=== PATIENT | male | born 1990 | race Caucasian/White ===

== ENCOUNTER → 2023-02-23 08:37 | Outpatient (CLI) | payer MEDICARE, OTHER, SELFPAY ==
[2023-02-23 18:56] LABS: Basophils % 0.4 % (0.1-2.0); Eosinophils # 0.1 K/mm3 (0.0-0.4); Eosinophils % 1.1 % (0.1-12.0); Hematocrit 47.6 % (42.0-52.0); Hemoglobin 16.8 g/dL (14.1-18.0); Lymphocytes # 2.6 K/mm3 (0.7-4.5); Lymphocytes % 25.6 % (10-50); Mean Corpuscular HGB Conc 35.2 g/dL (31.8-35.4); Mean Corpuscular Hemoglobin 31.7 pg (27.0-31.2); Mean Corpuscular Volume 90.2 fl (80-94); Mean Platelet Volume 9.2 fl (7.4-10.4); Monocytes # 0.6 K/mm3 (0.1-1.0); Monocytes % 5.9 % (1.7-9.3); Neutrophils # 6.8 K/mm3 (1.8-7.8); Platelet Count 242 K/mm3 (142-424); Red Blood Count 5.28 M/mm3 (4.60-6.20); Red Cell Distribution Width 14.9 % (11.5-17.5); White Blood Count 10.1 K/mm3 (4.8-10.8)
[2023-02-23 18:58] LABS: Alanine Aminotransferase 28 U/L (12-78); Albumin Level 4.7 g/dl (3.5-5.0); Albumin/Globulin Ratio 1.4 (1.1-1.8); Alkaline Phosphatase 66 U/L (38-126); Anion Gap 14.9 mEq/L (5-15); Aspartate Amino Transferase 42 U/L (17-59); Bilirubin,Total 0.6 mg/dl (0.2-1.3); Blood Urea Nitrogen 11 mg/dl (9-20); Calcium 10.2 mg/dl (8.4-10.2); Carbon Dioxide 26 mmol/L (22.0-30.0); Chloride 104 mmol/L (98-107); Chol/HDL Ratio 2.7 (1-3.5); Cholesterol 143 mg/dl (140-200); Estimated Glomerular Filt Rate 111 ml/min (>60); GFR (African American) 135 ML/MIN (>60); Globulin 3.3 g/dL (1.3-3.2); Glucose 92 mg/dl (74-100); HDL Cholesterol 53 mg/dl (40-60); Potassium 3.9 mmoL/L (3.5-5.1); Sodium 141 mmol/L (136-145); Triglycerides 55 mg/dl (30-150); VLDL Cholesterol 11 mg/dL (0-40)
[2023-02-23 19:10] LABS: Direct LDL Cholesterol 74.97 mg/dL (100-129)
[2023-02-23 19:15] LABS: T4 (Thyroxine) 8.5 ug/dl (5.53-11.0)
[2023-02-23 19:16] LABS: 25-OH Vitamin D, Total 48.6 ng/mL (30-100)
[2023-02-23 19:29] LABS: Thyroid Stimulating Hormone 0.87 uIU/mL (0.465-4.68)
[2023-02-23 20:43] LABS: Erythrocyte Sedimentation Rate 10 mm/hr (0-15)
[2023-02-26 13:20] LABS: C-Peptide 2.8 ng/mL (1.1-4.4)
== END ==
PROVIDERS: PCP Emergency Medicine; Visit Provider Emergency Medicine
DX: E55.9 Vitamin D deficiency, unspecified (principal); E78.5 Hyperlipidemia, unspecified; L03.114 Cellulitis of left upper limb; R53.83 Other fatigue; Z68.22 Body mass index [BMI] 22.0-22.9, adult
CPT/HCPCS: 80053; 80061; 82306; 84436; 84443; 84681; 85025; 85651

== ENCOUNTER 2025-03-05 17:54 | Emergency (ER) | payer OTHER, SELFPAY ==
[2025-03-05 17:59] VITALS: BP 137/80; PULSE 84; RESP 20; TEMP 36.8; O2SAT 100
--- NOTE | 2025-03-05 18:02 | PC.NURSE ---
Pt awake alert and oriented Skin pink warm and dry 2nd degree and 1st degree bran noted to dorsal feet bilaterally Resp full and easy Speech clear and appropriate.
--- OUTSIDE RECORDS SUMMARY | 2025-03-05 18:10 | XMS_ITS | Encounter Summary ---
Author Organization [facility] Address [address] [place] [address] Care Team Providers Care Auto Radiator Specialist Name Role Phone Belem Valentine APRN Primary Care Provider Encounter Details Date Type Department Care Team (Late st Contact Info) Description 10/13/2011 Orders Only [facility] [address] [place] [address] Belem Valentine APRN [address] [place] [address] Fatigue (Primary Dx) Social History Tobacco Use Types Packs/Day Years Used Date Smoking Tobacco: Every Day Cigarettes 0.5 5 Alcohol Use Standard Drinks/Week Comments No 0 (1 standard drink = 0.6 oz pur e alcohol) Sex and Gender Information Value Date Recorded Sex Assigned at Not on file 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 Gender Identity Not on file Sexual Orientation Not on file documented as of this encounter Plan of Treatment Scheduled Orders Name Type Priority Associated Diagnoses Orde r Schedule Paper lab order(s) received Lab Routine Fatigue Expected: 10/13/2011, Expires: 04/14/2012 documented as of this encounter Visit Diagnoses Diagnosis Fatigue- Primary Other malaise and fatigue documented in this encounter Care Teams Auto Radiator Specialist Relationship Specialty Start Date End Date Belem Valentine APRN PCP - General Family Medicine 10/09/11 documented as of this encounter Additional Source Comments IMPORTANT NOTICES REGARDING PATIENT RECORDS DISCLOSED THROUGH CARE EVERYWHERE:1. If the informationreleased to you contains information about AIDs or HIVtest results, that information has been disclosed to you from records whoseconfidentiality is protected by state law ([place] 214[place]625). State law proh ibitsyou from making any further disclosure of such information relating to AIDS orHIV without the specific written consent of the person to whom such informationpertains, or as otherwise permitted by state law. A general authorization forthe release of medical or other information is NOT sufficient for this purpose.2. If the information released to you contains information about alcohol ordrug abuse diagnosis, treatment for such abuse, or referrals for treatment, andif the release was made by a program as defined in 42 CFR 2.11, thisinformation has been disclosed to you from records protected by Federalconfidentiality rules ( TheFederal rules restrict any use of the information to criminally investigate orprosecute any alcohol or drug abuse patient.3. If the information released to you contains information about a person'smental health or chemical dependency, you may not redisclose or otherwisereveal information concerning the mental health or chemical dependency of thatperson, beyond the purpose for which the disclosure was made, without firstobtaining that person's specific written consent to the redisclosure. [id number].[facility]
--- OUTSIDE RECORDS SUMMARY | 2025-03-05 18:11 | XMS_ITS | Encounter Summary ---
Author Organization [facility] Address [address] [place] [address] Care Team Providers Care Hospital Laboratory Technician Name Role Phone Belem Valentine APRN Primary Care Provider Encounter Details Date Type Department Care Team (Late st Contact Info) Description 11/09/2011 Orders Only [facility] [address] [place] [address] Belem Valentine APRN [address] [place] [address] Chronic hepatitis C without mention of hepatic coma (Primary Dx) Social History Tobacco Use Types Packs/Day Years Used Date Smoking Tobacco: Every Day Cigarettes 0.5 5 Smokeless Tobacco: Current Snuff, Chew Alcohol Use Standard Drinks/Week Comments No 0 (1 standard drink = 0.6 oz pur e alcohol) Sex and Gender Information Value Date Recorded Sex Assigned at Not on file 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 Gender Identity Not on file Sexual Orientation Not on file documented as of this encounter Plan of Treatment Scheduled Orders Name Type Priority Associated Diagnoses Orde r Schedule Paper lab order(s) received Lab Routine Chronic hepatitis C without mention of hepatic coma Expected: 11/09/2011, Expires: 05/11/2012 documented as of this encounter Visit Diagnoses Diagnosis Chronic hepatitis C without mention of hepatic coma- Primary documented in this encounter Care Teams Hospital Laboratory Technician Relationship Specialty Start Date End Date Belem [...] person's specific written consent to the redisclosure. [id number].[facility]
--- OUTSIDE RECORDS SUMMARY | 2025-03-05 18:11 | XMS_ITS | Data Portability ---
Author Organization [facility] [employer] - [facility] Address [address] [place] [address] Assessment Encounter Date Assessment Date Assessment LastModified by Organization Details LastModified Time 01/11/2024 01/11/2024 Rash consistent with scabies, will treat with permethrin. Handout with care instructions provided. Labs per plan. If iron profile is normal, will consider ropinirole. Do not recommend gabapentin that was requested given patient history, but would consider neurology referral if ropinirole is ineffective at controlling symptoms. Medication as prescribed for anxiety. Continue CBT at [facility] as planned. Follow up in 3 weeks for recheck, sooner if needed. Not available 01/14/2024 09:38:27 05/30/2024 05/30/2024 Medications per plan below. Discussed ER evaluation if worsening. Otherwise, follow up in 2 weeks. We will plan for ultrasound if mass has not improved with antibiotic therapy at that point. We will try ropinirole for RLS. I do not recommend gabapentin as treatment for this. If unable to control symptoms, may consider referral in future to neuro for NCV/EMG. Follow up in 2 weeks to recheck, sooner if needed Not available 05/30/2024 12:09:52 Plan of Treatment Reminders Order Date Submit Date Provider Last Modified By Organization Details Last Modified Time Details Appointments None recorded. Lab iron + total iron-bindin g capacity (TIBC), serum 2023 024 [place] [facility]), [address] [place] [address], [place], [address], 4 04:08:18 lipid panel, serum 2023 024 [place] [facility] ([facility]), [address] [place], [address], 4 04:08:17 CBC w/ auto diff 2023 024 [place] [facility] ([facility]), [address] [facility], [place], [address], 4 04:08:16 CMP, serum or plasma 2023 024 [place] [facility] [address] [facility], [place], [address], 4 04:08:17 Referral None recorded. Procedures None recorded. Surgeries None recorded. Imaging None recorded. Medication Orders ropinirole 0.5 mg tablet 2024 025 [facility], [address] [place] [address], [address], 5 14:45:47 amoxicillin 875 mg-potassiu m clavulanate 125 mg tablet 2024 025 [facility], [address] [place] [address], [address], 5 14:45:46 permethrin 5 % topical cream 2023 025 [facility], [address] [place] [address], [address], 5 12:04:37 Lexapro 10 mg tablet 2023 025 [facility], [address] [place] [address], [address], 5 12:04:35 Patient TargetsNo targets recorded. Patient Instructions Encounter Date Encounter Id Patient Instructions Last Modified By Organization Details Last Modified Time 01/11/2024 [id number] scabies: care instructions Not available 01/11/2024 15:46:51 learning about healthy weight Not available 01/14/2024 09:39:17 05/30/2024 [id number] restless legs syndrome: care instructions Not available 05/30/2024 12:04:20 swollen lymph nodes: care instructions Not available 05/30/2024 12:04:19 Reason for Referral None Reported. Results Created Date Observation Date Name Description Value Unit Range Abnormal Flag Note LastModifiedBy Organization Detail LastModifiedTime 01/11/2001/12/2024 CBC WITH DIFFE RENTI AL/PL ATELE T WBC 9.7 x10e3 /uL 3.4-10 .8 normal Not Available [facility] ([facility]) [address] [place], [address], 01/12/2024 04:08:16 01/11/2001/12/2024 CBC WITH DIFFE RENTI AL/PL ATELE T RBC 5.34 x10e6 /uL 4.14-5 .80 normal Not Available [facility] ([facility]) [address] [place], [address], 01/12/2024 04:08:16 01/11/2001/12/2024 CBC WITH DIFFE RENTI AL/PL ATELE T hemoglobin 16.3 g/dL 13.0-1 7.7 normal Not Available [facility] ([facility]) [address] [place], [address], 01/12/2024 04:08:16 01/11/2001/12/2024 CBC WITH DIFFE RENTI AL/PL ATELE T hematocrit 48.2 % 37.5-5 1.0 normal Not Available [facility] ([facility]) [address] [place], [address], 01/12/2024 04:08:16 01/11/2001/12/2024 CBC WITH DIFFE RENTI AL/PL ATELE T MCV 90 fL 79-97 normal Not Available [facility] ([facility]) [address] [place], [address], 01/12/2024 04:08:16 01/11/20 24 01/12/2024 CBC WITH DIFFE RENTI AL/PL ATELE T MCH 30.5 pg 26.6-3 3.0 normal Not Available [facility] ([facility]) [address] [facility], [place], [address], 01/12/2024 04:08:16 01/11/20 24 01/12/2024 CBC WITH DIFFE RENTI AL/PL ATELE T MCHC 33.8 g/dL 31.5-3 5.7 normal Not Available [facility] ([facility]) [address] [facility], [place], [address], 01/12/2024 04:08:16 01/11/20 24 01/12/2024 CBC WITH DIFFE RENTI AL/PL ATELE T RDW 12.7 % 11.6-1 5.4 Not Available [facility] ([facility]) [address] [facility], [place], [address], 01/12/2024 04:08:16 01/11/20 24 01/12/2024 CBC WITH DIFFE RENTI AL/PL ATELE T platelets 238 x10e3 /uL 150-45 0 normal Not Available [facility] ([facility]) [address] [facility], [place], [address], 01/12/2024 04:08:16 01/11/20 24 01/12/2024 CBC WITH DIFFE RENTI AL/PL ATELE T neutrophils 65 % not estab. normal Not Available [facility] ([facility]) [address] [place], [address], 01/12/2024 04:08:16 01/11/20 24 01/12/2024 CBC WITH DIFFE RENTI AL/PL ATELE T lymphs 23 % not estab. normal Not Available [facility] ([facility]) [address] [place], [address], 01/12/2024 04:08:16 01/11/20 24 01/12/2024 CBC WITH DIFFE RENTI AL/PL ATELE T monocytes 9 % not estab. normal Not Available [facility] ([facility]) [address] [facility], [place], [address], 01/12/2024 04:08:16 01/11/20 24 01/12/2024 CBC WITH DIFFE RENTI AL/PL ATELE T eos 2 % not estab. normal Not Available [facility] ([facility]) [address] [facility], [place], [address], 01/12/2024 04:08:16 01/11/20 24 01/12/2024 CBC WITH DIFFE RENTI AL/PL ATELE T basos 1 % not estab. normal Not Available [facility] (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) [address] [place], [address], 01/12/2024 04:08:16 01/11/20 24 01/12/2024 CBC WITH DIFFE RENTI AL/PL ATELE T neutrophils (absolute) 6.3 x10e3 /uL 1.4-7. 0 normal Not Available [facility] ([facility]) [address] [place], [address], 01/12/2024 04:08:16 01/11/20 24 01/12/2024 CBC WITH DIFFE RENTI AL/PL ATELE T lymphs (absolute) 2.2 x10e3 /uL 0.7-3. 1 normal Not Available [facility] ([facility]) [address] [place], [address], 01/12/2024 04:08:16 01/11/20 24 01/12/2024 CBC WITH DIFFE RENTI AL/PL ATELE T monocytes(ab solute) 0.9 x10e3 /uL 0.1-0. 9 normal Not Available [facility] ([facility]) [address] [facility], [place], [address], 01/12/2024 04:08:16 01/11/20 24 01/12/2024 CBC WITH DIFFE RENTI AL/PL ATELE T eos (absolute) 0.2 x10e3 /uL 0.0-0. 4 normal Not Available [facility] ([facility]) [address] [facility], [place], [address], 01/12/2024 04:08:16 01/11/20 24 01/12/2024 CBC WITH DIFFE RENTI AL/PL ATELE T baso (absolute) 0.1 x10e3 /uL 0.0-0. 2 normal Not Available [facility] ([facility]) [address] [facility], [place], [address], 01/12/2024 04:08:16 01/11/20 24 01/12/2024 CBC WITH DIFFE RENTI AL/PL ATELE T immature granulocytes 0 % not estab. Not Available [facility] ([facility]) [address] [facility], [place], [address], 01/12/2024 04:08:16 01/11/20 24 01/12/2024 CBC WITH DIFFE RENTI AL/PL ATELE T immature grans (abs) 0.0 x10e3 /uL 0.0-0. 1 Not Available [facility] (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) [address] [place], [address], 01/12/2024 04:08:16 01/11/20 24 01/12/2024 CBC WITH DIFFE MIGUELINA AL/SATISH [facility] comments: DOLLY OPERATOR Not Available [facility] ([facility]) [address] [facility], [place], [address], 01/12/2024 04:08:16 01/11/20 24 01/12/2024 COMP. METAB OLIC PANEL (14) glucose 86 mg/dL 70-99 normal Not Available [facility] ([facility]) [address] [facility], [place], [address], 01/12/2024 04:08:17 01/11/20 24 01/12/2024 COMP. METAB OLIC PANEL (14) BUN 15 mg/dL 6-20 normal Not Available [facility] ([facility]) [address] [facility], [place], [address], 01/12/2024 04:08:17 01/11/20 24 01/12/2024 COMP. METAB OLIC PANEL (14) creatinine 0.96 mg/dL 0.76-1 .27 normal Not Available [facility] ([facility]) [address] [facility], [place], [address], 01/12/2024 04:08:17 01/11/20 24 01/12/2024 COMP. METAB OLIC PANEL (14) eGFR 107 mL/mi n/1.7 3 >59 normal Not Available [facility] ([facility]) [address] [facility], [place], [address], 01/12/2024 04:08:17 01/11/20 24 01/12/2024 COMP. METAB OLIC PANEL (14) BUN/creatini ne ratio 16 9-20 normal Not Available [facility] ([facility]) [address] [facility], [place], [address], 01/12/2024 04:08:17 01/11/20 24 01/12/2024 COMP. METAB OLIC PANEL (14) sodium 138 mmol/ L 134-14 4 normal Not Available [facility] ([facility]) [address] [facility] [place], [address], 01/12/2024 04:08:17 01/11/20 24 01/12/2024 COMP. METAB OLIC PANEL (14) potassium 3.9 mmol/ L 3.5-5. 2 normal Not Available [facility] ([facility]) [address] [facility] [place], [address], 01/12/2024 04:08:17 01/11/20 24 01/12/2024 COMP. METAB OLIC PANEL (14) chloride 99 mmol/ L 96-106 normal Not Available [facility] ([facility]) [address] [facility] [place], [address], 01/12/2024 04:08:17 01/11/20 24 01/12/2024 COMP. METAB OLIC PANEL (14) carbon dioxide, total 24 mmol/ L 20-29 normal Not Available [facility] ([facility]) [address] [facility] [place], [address], 01/12/2024 04:08:17 01/11/20 24 01/12/2024 COMP. METAB OLIC PANEL (14) calcium 9.9 mg/dL 8.7-10 .2 normal Not Available [facility] ([facility]) [address] [facility] [place], [address], 01/12/2024 04:08:17 01/11/20 24 01/12/2024 COMP. METAB OLIC PANEL (14) protein, total 7.3 g/dL 6.0-8. 5 normal Not Available [facility] ([facility]) [address] [facility] [place], [address], 01/12/2024 04:08:17 01/11/20 24 01/12/2024 COMP. METAB OLIC PANEL (14) albumin 4.7 g/dL 4.1-5. 1 normal Not Available [facility] ([facility]) [address] [facility] [place], [address], 01/12/2024 04:08:17 01/11/20 24 01/12/2024 COMP. METAB OLIC PANEL (14) globulin, total 2.6 g/dL 1.5-4. 5 Not Available [facility] ([facility]) [address] [facility] [place], [address], 01/12/2024 04:08:17 01/11/20 24 01/12/2024 COMP. METAB OLIC PANEL (14) bilirubin, total 0.5 mg/dL 0.0-1. 2 normal Not Available [facility] ([facility]) [address] [facility] [place], [address], 01/12/2024 04:08:17 01/11/20 24 01/12/2024 COMP. METAB OLIC PANEL (14) alkaline phosphatase 62 IU/L 44-121 normal Not Available [facility]) [address] [facility] [place], [address], 01/12/2024 04:08:17 01/11/20 24 01/12/2024 COMP. METAB OLIC PANEL (14) AST (SGOT) 22 IU/L 0-40 normal Not Available [facility] ([facility]) [address] [facility] [place], [address], 01/12/2024 04:08:17 01/11/20 24 01/12/2024 COMP. METAB OLIC PANEL (14) ALT (SGPT) 17 IU/L 0-44 normal Not Available [facility] ([facility]) [address] [facility] [place], [address], 01/12/2024 04:08:17 01/11/20 24 01/12/2024 LIPID PANEL cholesterol, total 139 mg/dL 100-19 9 normal Not Available [facility] ([facility]) [address] [facility] [place], [address], 01/12/2024 04:08:17 01/11/20 24 01/12/2024 LIPID PANEL triglyceride s 123 mg/dL 0-149 normal Not Available [facility] ([facility]) [address] [facility] [place], [address], 01/12/2024 04:08:17 01/11/20 24 01/12/2024 LIPID PANEL HDL cholesterol 38 mg/dL >39 below low normal Not Available [facility] ([facility]) [address] [facility] [place], [address], 01/12/2024 04:08:17 01/11/20 24 01/12/2024 LIPID PANEL VLDL cholesterol ras 22 mg/dL 5-40 Not Available [facility] ([facility]) [address] [place], [address], 01/12/2024 04:08:17 01/11/20 24 01/12/2024 LIPID PANEL LDL chol calc ([facility]) 79 mg/dL 0-99 Not Available [facility] (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) [address] [place], [address], 01/12/2024 04:08:17 01/11/20 24 01/12/2024 IRON AND TIBC iron bind.cap.(TI BC) 326 ug/dL 250-45 0 normal Not Available [facility] ([facility]) [address] [place], [address], 01/12/2024 04:08:18 01/11/20 24 01/12/2024 IRON AND TIBC UIBC 223 ug/dL 111-34 3 normal Not Available [facility] ([facility]) [address] [facility] [place], [address], 01/12/2024 04:08:18 01/11/20 24 01/12/2024 IRON AND TIBC iron 103 ug/dL 38-169 normal Not Available [facility] ([facility]) [address] [facility], [place], [address], 01/12/2024 04:08:18 01/11/20 24 01/12/2024 IRON AND TIBC iron saturation 32 % 15-55 normal Not Available [facility] ([facility]) [address] [facility], [place], [address], 01/12/2024 04:08:18 Result Notes None recorded. 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 05421546 Completed 201704/08/2018 Problem Code: J15.7; Problem Code Type: ICD-10; Not Available [facility] 2 22:23:12 Dyspnea 258507054 Completed 201702/21/2018 Problem Code: R06.02; Problem Code Type: ICD-10; Not Available [facility] 2 22:23:12 Cough 14023428 Completed 201702/21/2018 Problem Code: R05; Problem Code Type: ICD-10; Not Available [facility] 2 22:23:12 Respirat ory symptom 500572689 Completed 201702/21/2018 Not Available [facility] 2 22:23:12 Restless legs syndrome 53905547 Active 2023 Lucía Delacruz NP [address] [place] [address], [address] , [employer] 5 12:05:19 History of hepatiti s C 45689892023 101 Active 2023 Lucía Delacruz NP [address] [place] [address], [address] [place] [address] , [employer] 4 15:40:18 History of substanc e abuse 602632691 Active 2023 Lucía Delacruz NP [address] [place] [address], [address] [place] [address] , [employer] 4 15:40:48 Infestat ion by Sarcopte s scabiei niraj hominis 963365923 Completed 202305/30/2024 Lucía Delacruz NP [address] [place] [address], [address] [place] [address] , [employer] 5 12:05:23 Anxiety 72661942 Active 2023 Lucía Delacruz NP [address] [place] [address], [address] [place] [address] , [employer] 5 12:05:30 Mass of neck 637863482 Active 2024 Lucía Delacruz NP [address] [place] [address], [address] [place] [address] , [employer] 5 12:05:20 Lymphade nopathy 25043426 Active 2024 Lucía Delacruz NP [address] [place] [address], [address] [place] [address] , [employer] 5 12:05:21 Problem Notes None recorded. Medical Equipment None Reported. Allergies No known drug allergies Medications Name Sig Start Date Stop Date Status Note LastModified by Organization Details LastModified Time prednisone 5 mg tablet 10 pills po today and decrease by one pill each day 04/08 completed Not Available Not Available Not Available permethrin 5 % topical cream APPLY (THOROUGH LY MASSAGE INTO SKIN FROM HEAD TO SOLES OF FEET) BY TOPICAL ROUTE ONCE LEAVE ON FOR 8-14 HR, THEN REMOVE BY THOROUGH WASHING 05/30 completed Not Available Not Available Not Available benita neal enesin 10 mg-100 mg/5 mL oral syrup Take 1 teaspoon by mouth q4h prn for cough 04/08 completed Not Available Not Available Not Available triamcinolo ne acetonide 0.1 % topical cream Apply thin film to affected area bid 01/15 completed Not Available Not Available Not Available ropinirole 0.5 mg tablet TAKE ONE TO TWO tablets by MOUTH AT bedtime FOR restless legs active Not Available Not Available No t Available Levaquin 500 mg tablet Take 1 tablet(s) by mouth daily for 10 days 03/19 completed Not Available Not Available Not Available amoxicillin 875 mg-potassiu m clavulanate 125 mg tablet TAKE ONE TABLET BY MOUTH EVERY TWELVE HOURS active Not Available Not Available No t Available Bactrim DS 800 mg-160 mg tablet Take 1 tablet(s) by mouth q12h for 10 days 12/26 completed Not Available Not Available Not Available escitalopra m 10 mg tablet Take 1 tablet every day by oral route. 05/30 completed Not Available Not Available Not Available Vitals Date Recorded Body height Body mass index (BMI) Body weight Heart rate Oxygen saturation Oxygen saturation in Arterial blood by Pulse oximetry Systolic And Diastolic Systolic And Diastolic Systolic And Diastolic Provider Name and Address Organization Details Last Updated DateTime 5 182.88 cm 27.8 kg/m2 36757.8 4 g 64 /min 95 % 95 % 156/84 mm[Hg] 144/84 mm[Hg] 138/86 mm[Hg] [employer] 5 11:48:43 Date Recorded Body height Body mass index (BMI) Body weight Heart rate Oxygen saturation Oxygen saturation in Arterial blood by Pulse oximetry Systolic And Diastolic Provider Name and Address Organization Details Last Updated DateTime 4 182.88 cm 25.8 kg/m2 27673.9 5 g 70 /min 96 % 96 % 126/84 mm[Hg] [employer] 4 15:12:07 Social History Question Answer Notes LastModified by Organizat ion Details LastModified Time Tobacco Smoking Status Current Every Day Smoker SocialHist oryQuestio n: 'Tobacco/A lcohol/Sup plements'; SocialHist oryRespjamie e: 'Current tobacco smoker (CAD, CAP, COPD, PV)1 (DM)4'; Not Available [facility] 01/10/2022 22:55:28 Do You Have An Advance Directive? No Information not available 01/11/2024 Do You Wear A Helmet When Biking? No [email or web address] Information not available 01/11/2024 Are You Blind Or Do You Have Difficulty Seeing? No [email or web address] Information not available 01/11/2024 What Is Your Level Of Caffeine Consumption? Occasional [email or web address] Information not available 01/11/2024 Are You A Caregiver? No [email or web address] Information not available 01/11/2024 In The 14 Days Before Symptom Onset, Have You Had Close Contact With A Laboratory-confir med COVID-19 While That Case Was Ill? No [email or web address] Information not available 01/11/2024 In The 14 Days Before Symptom Onset, Have You Had Close Contact With A Person Who Is Under Investigation For COVID-19 While That Person Was Ill? No [email or web address] Information not available 01/11/2024 Have You Been To An Area Known To Be High Risk For COVID-19? No Information not available 01/11/2024 Are You Deaf Or Do You Have Serious Difficulty Hearing? No Information not available 01/11/2024 What Type Of Diet Are You Following? REGULAR [email or web address] Information not available 01/11/2024 Have There Been Any Changes To Your Family Or Social Situation? No Information no t available 01/11/2024 Which Of Your Hands Is Dominant? Right [email or web address] Information not available 01/11/2024 Do You Have A Medical Power Of Combine Operator? No [email or web address] Information not available 01/11/2024 What Was The Date Of Your Most Recent Tobacco Screening? 05/30/2024 [email or web address] Information not available 05/30/2024 What Is Your Current Pack Years? [email or web address] Information not available 01/11/2024 What Is Your Relationship Status? Single Information not available 01/11/2024 Do You Use Your Seat Belt Or Car Seat Routinely? Yes [email or web address] Information not available 01/11/2024 Are You Sexually Active? Yes [email or web address] Information not available 01/11/2024 At What Age Did You Start Smoking Tobacco? 14 [email or web address] Information not available 01/11/2024 How Much Tobacco Do You Smoke? 2 PPD Information not available 01/11/2024 Do You Participate In Social Media? Yes Information not available 01/11/2024 Has Tobacco Cessation Counseling Been Provided? No [email or web address] Information not available 01/11/2024 How Many Years Have You Smoked Tobacco? 19 [email or web address] Information not available 01/11/2024 Have You Recently Traveled Abroad? No [email or web address] Information not available 01/11/2024 Do You Have Difficulty Walking Or Climbing Stairs? No Information not available 01/11/2024 Do You Have Any Dietary Restrictions? No [email or web address] Information not available 01/11/2024 Sex: Male Functional Status Question Answer Note LastModified by [employer] Details LastModified Time Do you use any illicit or recreational drugs? No Recovering addict. [email or web address] Information not available 01/11/2024 Do you or have you ever used any other forms of tobacco or nicotine? No [email or web address] Information not available 01/11/2024 What is your level of alcohol consumption? None Information not available 01/11/2024 Do you have transportation difficulties? No Information not available 01/11/2024 Are you able to walk independently without assistance or assistive devices? YESWOREST [email or web address] Information not available 01/11/2024 Do you have difficulty doing errands alone? No [email or web address] Information not available 01/11/2024 Are you able to care for yourself independently? Yes [email or web address] Information not available 01/11/2024 Do you have difficulty dressing, bathing, grooming, or toileting? No [email or web address] Information not available 01/11/2024 Mental Status Question Answer Note LastModified by [employer] Details LastModified Time Do you feel stressed (tense, restless, nervous, or anxious, or unable to sleep at night)? [id number] [email or web address] Information not available 01/11/2024 Do you have difficulty concentrating, remembering or making decisions? No Information no t available 01/11/2024 Family History Relationship Description Onset Age of this Age Resolved Age Notes LastModified by Organization Details LastModified Time Unspecified Relation Family history of alcoholism Relati ve: ''; [email or web address] Not available 01/10/2022 22:58:10 Mother Hypertensive disorder [email or web address] Not available 2023 15:12:57 Mother Malignant neoplasm of breast [email or web address] Not available 2023 15:13:11 Mother Diabetes mellitus Not available 2023 15:13:19 Mother Anxiety [email or web address] Not available 01/11/2024 15:13:27 Notes:*Procedure Description : Documented family medical history in father*Relative: Father Medical History Condition Response Emergency room visit since last appointm ent. N Hospitalizations N Asthma Y Immunizations Vaccine Type Date Status Note Provider Nam e and Address Organization Details Recorded Time MMR 2 completed Angie mcintyre, [employer]. 01/11/2024 15:12:15 COVID-19, mRNA, LNP-S, PF, 30 mcg/0.3 mL dose 1 completed Angie mcintyre, [employer] 01/11/2024 15:12:15 Td (adult), 2 Lf tetanus toxoid, preservative free, adsorbed 3 completed Angie mcintyre, [employer] 01/11/2024 15:12:15 Hep B, adolescent or pediatric 3 completed Angie mcintyre, [employer] 01/11/2024 15:12:15 Hep B, adolescent or pediatric 2 completed Angie mcintyre, [employer] 01/11/2024 15:12:15 Hep B, adolescent or pediatric 2 martín mcintyre, [employer] 01/11/2024 15:12:15 Hep A, adult 3 completed Angie mcintyre, [employer] 01/11/2024 15:12:15 Hep A, adult 2 completed Angie Hassan null, [employer] 01/11/2024 15:12:15 DTaP, unspecified formulation 6 completed Angie Hassan null, [employer] 01/11/2024 15:12:15 Influenza, split virus, quadrivalent, PF 2 completed Angie Hassan null, [employer] 01/11/2024 15:12:15 Past Encounters Encounter ID Performer Location Encounter Start Date Encounter Closed Date Diagnosis/Indication Diagnosis SNOMED-CT Code Diagnosis ICD10 Code Diagnosis IMO Codes Diagnosis Note [id number] Lucía Delacruz NP [employer] [address] [address] 01/11/2024 13:52:46 01/11/2024 15:55:41 Restless legs syndrome 11126080 G25.81 Adult [facility] examination 827022443 Z00.00 Screening for cardiovascular system disease 916995808 Z13.6 Infestatio n by Sarcoptes scabiei niraj hominis 627935258 B86 Anxiety 95637040 F41.9 Body mass index 25-29 - overweight 901542314 Z68.25 [id number] Lucía Delacruz NP [employer] [address] [address] 05/30/2024 11:32:11 05/30/2024 12:16:54 Restless legs syndrome 59951615 G25.81 Lymphadenopathy 13113406 R59.0 Mass of neck 761366914 R 22.1 Health Concerns Section Related Observation LastModified by Organization Detai ls LastModified Time None Recorded Concern Status LastModified by Organization Details LastModified Time None Recorded Advance Directives Directive N: Payers Insurance Date Sequence Insurance Name Policy Number Policy Schofield Covered Member ID Schofield Member ID Guarantor Name 01/11/2024 1 *SELF PAY* Do katie Hammonds 02/24/2025 1 [facility] (MEDICAID HMO) Anand Hammonds [id number] Anand Hammonds Notes Date Note Type Note Provider Name and Address Organization Details Recorded Time 01/11/2024 text/html Patient [facility]. Lives with significant and three children. Disabled. Has history of leg cramping and pain at night constant movement. He was on gabapentin for leg cramping and it helped, but his doctor left the practice and it is no longer prescribed.Has been treated for hepatitis C and it is resolved - treated at . Has history of substance use. 1 year without substance use now.Goes to counseling once weekly - [facility] in [place]. He does notice that he has some anxiety and agitation. He is interested in discussing medication for this today as well.The reason for visit today is that his family members were diagnosed with scabies and he has a rash with itching on his hands, arms, torso and bilateral lower legs. Lucía Delacruz NP [address] [place], [address], [employer] 01/14/2024 09:39:46 05/30/2024 text/html Patient presents for follow up on RLS and to discuss knot on his anterior neck. He was previously worked up for iron deficiency as possible cause for RLS but iron profile and CBC were normal. He states his previous PCP was prescribing gabapentin and it is the only thing that helps him. He has been buying gabapentin off the street, and this helps symptoms.The knot on his neck started about a week ago. He states it is tender to touch and hurts to swallow sometimes. He got a tattoo on left side of his neck a week ago and noticed some swollen lymph nodes on both sides, but then the right side started swelling and became painful. It does not hurt to swallow and no issues with breathing. No warmth or erythema. Lucía Delacruz NP [address] [place], [address], [employer] 05/30/2024 12:10:13
--- OUTSIDE RECORDS SUMMARY | 2025-03-05 18:11 | XMS_ITS | Clinical Summary ---
Author Organization [employer] Address [address] [place] [address] Care Team Providers Care Websphere Portal Architect Name Role Phone Belem Valentine APRN Primary Care Provider Allergies No known active allergies Medications CLARINEX 5 mg tabletIndicatio ns:Asthma Take 1 tablet by mouth daily. 90 tablet 3 10/09/2011 Active albuterol (PROVENTIL HFA;VENTOLIN HFA) 90 mcg/actuation inhalerIndicati ons:Asthma Inhale 2 puffs into the lungs every 6 (six) hours as needed. 3 Inhaler 3 10/09/2011 Active fluticasone-fermin meterol (ADVAIR) 250-50 mcg/dose diskus inhalerIndicati ons:Asthma Inhale 1 puff into the lungs 2 (two) times daily. Rinse mouth after use 3 Inhaler 3 10/09/2011 Active montelukast (SINGULAIR) 10 mg tabletIndicatio ns:Asthma Take 1 tablet by mouth nightly. 30 tablet 3 10/09/2011 Active VITAMIN B-12 2,500 mcg SublIndications :Vitamin B12 deficiency Place 1 tablet under the tongue 4 (four) times a week. 100 each 0 10/17/2011 Active omeprazole (PRILOSEC) 20 MG capsuleIndicati ons:GERD (gastroesophage al reflux disease) Take 1 capsule by mouth daily. 30 capsule 1 11/07/2011 Active NEXIUM 40 mg capsuleIndicati ons:GERD (gastroesophage al reflux disease) Take 1 capsule by mouth every morning before breakfast. 90 capsule 3 11/07/2011 Active CELEBREX 200 mg capsuleIndicati ons:Bilateral knee pain,LBP (low back pain) Take 1 capsule by mouth 2 (two) times daily. 180 capsule 3 11/07/2011 Active cholecalciferol , vitamin D3, (VITAMIN D3) 2,000 unit TabIndications: Vitamin D deficiency Take 1 capsule by mouth daily. 100 each 1 11/07/2011 Active paroxetine (PAXIL) 20 MG tabletIndicatio ns:Depression Take 1 tablet by mouth every morning. 30 tablet 1 11/28/2011 Active RISPERDAL 1 mg tabletIndicatio ns:Bipolar affect, depressed (CMS/HCC) Take 1.5 tablets by mouth nightly. 135 tablet 3 11/28/2011 Active Hospital, Clinic, or Other Facility Administered Medication Ordered Dose Route Frequency Start Date End Date Status lidocaine (PF) (XYLOCAINE) 10 mg/mL (1 %) injection Soln 10 mgIndications:Bilateral knee pain 10 mg IAtc Once 11/07/2011 Active lidocaine (PF) (XYLOCAINE) 10 mg/mL (1 %) injection Soln 10 mgIndications:Bilateral knee pain 10 mg IAtc Once 11/07/2011 Active Active Problems Problem Noted Date Diagnosed Date Bilateral knee pain 11/07/2011 LBP (low back pain) 11/07/2011 Overview (08/08/2021): IMO August 2021 GERD (gastroesophageal reflux disease) 2 Hep C w/o coma, chronic 11/07/2011 Vitamin D deficiency 11/07/2011 Bipolar affect, depressed 10/09/2011 Depression 10/09/2011 Abdominal pain 10/09/2011 Asthma 10/09/2011 Tobacco abuse 10/09/2011 Athlete's foot 10/09/2011 LBP radiating to right leg 10/09/2011 Overview (08/08/2021): IMO August 2021 Knee pain, bilateral 10/09/2011 Family history of acute myocardial infarction Back pain 10/09/2011 Family History Medical History Relation Comments Alcohol abuse Father Depression Father Drug abuse Father Arthritis Mother Asthma Mother Depression Mother High cholesterol Mother Hypertension Mother Depression Sister Relation Status Comments Father Mother Sister Social History Tobacco Use Types Packs/Day Years Used Date Smoking Tobacco: Every Day Cigarettes 0.5 5 Smokeless Tobacco: Current Snuff, Chew Tobacco Cessation:Ready to Q uit: No; Counseling Given: Yes Alcohol Use Standard Drinks/Week Comments No 0 (1 standard drink = 0.6 oz pur e alcohol) Sex and Gender Information Value Date Recorded Sex Assigned at Not on file Legal Sex Male 1:40 AM [employer] Gender Identity Not on file Sexual Orientation Not on file Last Filed Vital Signs Vital Sign Reading Time Taken Comments Blood Pressure 116/80 11/28/2011 11:34 AM CDT Pulse 74 11/28/2011 9:15 AM CDT Temperature 37.1 C (98.8 F) 11/28/2011 9:15 AM CDT Respiratory Rate 16 10/09/2011 1:46 PM CDT Oxygen Saturation - - Inhaled Oxygen Concentration - - Weight 90.7 kg (200 lb) 11/28/2011 9:15 AM CDT Height 190.5 cm (6' 3 ) 11/28/2011 9:15 AM CDT Body Mass Index 25 11/28/2011 9:15 AM CDT Plan of Treatment Health Maintenance Due Date Last Done Comments IMM Schedule: Varicella (1 o f 2 - 13+ 2-dose series) 2003 IMM Schedule: Diphtheria, Te tanus, and Pertussis (1 - Tdap) 2009 IMM Schedule: Hepatitis B (1 of 3 - 19+ 3-dose series) 2009 COVID-19 Vaccine (1 - 2023-2 5 season) 2025 IMM Schedule: Influenza (#1) 2025 IMM Schedule: Zoster (1 of 2) 02/21/2040 IMM Schedule: Hepatitis A Aged Out No longer eligible based on patient's age to complete this topic IMM Schedule: Meningococcal ACWY (Menhibrix/Menomune) Aged Out No longer eligible based on patient's age to complete this topic IMM Schedule: Meningococcal B Aged Out No longer eligible based on patient's age to complete this topic IMM Schedule: Pneumococcal ( 0-49 yrs) Aged Out No longer eligible b ased on patient's age to complete this topic IMM Schedule: RSV <20 Months Aged Out No longer eligible based on patient's age to complete this topic Insurance MEDICARE A AND B Care Teams Websphere Portal Architect Relationship Specialty Start Date End Date Belem Valentine APRN PCP - General Family Medicine 10/09/11 Additional Source Comments IMPORTANT NOTICES REGARDING PATIENT [...] person's specific written consent to the redisclosure. [id number].[facility]
[2025-03-05] MEDS: BACITRACIN ZINC OINT 30GM TUBE TP (18:13)
[2025-03-05] MEDS: HYDROCODONE/APAP 5/325 MG TABLET 2 TAB PO (18:14)
[2025-03-05] MEDS: KETOROLAC 60MG/2ML VIAL 60 MG IM (18:15)
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
--- NOTE | 2025-03-05 18:48 | PC.NURSE ---
wounds cleaned and dressed with bacitracin, adaptic and gauze
[2025-03-05 19:45] VITALS: BP 138/74; PULSE 76; RESP 20; TEMP 36.8; O2SAT 100
== END 2025-03-05 19:46 | disposition home or self-care (01) ==
PROVIDERS: Emergency Provider Student in an Organized Health Care Education/Training Program
DX: T25.221A Burn of second degree of right foot, initial encounter (principal); T25.222A Burn of second degree of left foot, initial encounter; X12.XXXA Contact with other hot fluids, initial encounter
CPT/HCPCS: 96372; 99283; J1885